=== PATIENT | male | born 1935 | race Caucasian/White ===

== ENCOUNTER 2020-02-12 14:42 | Inpatient (IN) | payer MEDICARE ==
[~2020-02-12] VITALS: Ht 172.7 cm; Wt 60.2 kg
[2020-02-12] MEDS ORDERED: Ondansetron4 MG/2 M2 (15:59)
[2020-02-12] MEDS ORDERED: ALPR.25 (15:59)
[2020-02-12 16:25] LABS: BASOPHILS ABSOLUTE AUTO 0.04 K/mm3 (0.00-0.23); BASOPHILS PERCENT AUTO 0 % (0-2); EOSINOPHILS ABSOLUTE AUTO 0.01 K/mm3 (0.00-0.68); EOSINOPHILS PERCENT AUTO 0 % (0-6); Hematocrit 29.9 % (37.0-53.0); Hemoglobin 9.7 g/dL (13.5-17.5); IMMATURE GRAN ABSOLUTE AUTO 0.13 K/mm3 (0.00-0.10); IMMATURE GRAN PERCENT AUTO 1 % (0-1); LYMPHOCYTES ABSOLUTE AUTO 1.07 K/mm3 (0.84-5.20); LYMPHOCYTES PERCENT AUTO 6 % (21-46); MONOCYTES ABSOLUTE AUTO 1.66 K/mm3 (0.16-1.47); MONOCYTES PERCENT AUTO 10 % (4-13); Mean Corpuscular HGB 28.7 pg (26.0-34.0); Mean Corpuscular HGB Conc 32.4 g/dL (31.5-36.5); Mean Corpuscular Volume 89 fL (80-100); Mean Platelet Volume 9.8 fL (9.1-12.4); NEUTROPHILS ABSOLUTE AUTO 14.63 K/mm3 (1.96-9.15); NEUTROPHILS PERCENT AUTO 83 % (41-73); NRBC ABSOLUTE 0.03 K/mm3 (0.00-0.02); NRBC Auto 0.2 /100 WBC (0.0-0.2); Platelet Count 428 K/mm3 (150-400); RDW Coefficient Variation 15.4 % (11.7-14.2); RDW Standard Deviation 48.7 fL (35.1-46.3); Red Blood Cell Count 3.38 M/mm3 (4.30-5.90); White Blood Cell Count 17.54 K/mm3 (4.00-11.30)
[2020-02-12 16:43] LABS: Alanine Aminotransfer (ALT/SGP 40 U/L (12-78); Albumin, Blood 1.9 g/dL (3.4-5.0); Albumin/Globulin Ratio 0.4 (0.8-1.8); Alk Phos 98 U/L (50-136); Anion Gap 15 mmol/L (6-16); Aspartate Aminotrans (AST/SGOT 18 U/L (12-37); Bilirubin, Total 0.3 mg/dL (0.1-1.0); Blood Urea Nitrogen 78 mg/dL (8-24); Bun/Creatinine Ratio 10.5 (12.0-20.0); CO2, Blood 22 mmol/L (21-32); Calcium, Blood 9.7 mg/dL (8.5-10.1); Chloride, Blood 92 mmol/L (98-108); Creatinine, Blood 7.46 mg/dL (0.60-1.20); Globulin, Blood 5.2 g/dL (2.2-4.0); Glomerular Filtration Rate 7 (60-); Glucose, Blood 110 mg/dL (70-99); Potassium, Blood 3.7 mmol/L (3.5-5.5); Sodium, Blood 129 mmol/L (136-145); Total Protein, Blood 7.1 g/dL (6.4-8.2); Troponin I <0.015 ng/mL (0.000-0.040)
[2020-02-12] MEDS ORDERED: ATOR80 PO (19:01)
[2020-02-12] MEDS ORDERED: HYDR1TAB94 PO (19:02)
[2020-02-12] MEDS ORDERED: DUTASTERIDE PO (19:02)
[2020-02-12] MEDS ORDERED: ISOSORBIDE MONO60 MG PO (19:03)
[2020-02-12] MEDS ORDERED: AZELASTINE205.5 MCG1 (19:04)
[2020-02-12] MEDS ORDERED: CLON.5 PO (19:05)
[2020-02-12] MEDS ORDERED: METO25ER PO (19:06)
[2020-02-12] MEDS ORDERED: Ventolin/Prove6.7 GM INH (19:06)
[2020-02-12] MEDS ORDERED: PLAVIX75 MG PO (19:07)
[2020-02-12 19:08] LABS: Prothrombin Time Results 10.7 Sec (9.7-11.5)
[2020-02-12] MEDS ORDERED: PANTOPRAZOLE SO20 M1 PO (19:08)
[2020-02-12] MEDS ORDERED: CARAFATE1 GM PO (19:08)
[2020-02-12] MEDS ORDERED: CALCIUM ACETAT667 M2 PO (19:09)
[2020-02-12] MEDS ORDERED: NITR.4SL SL (19:09)
[2020-02-12] MEDS ORDERED: FURO80 PO (19:10)
[2020-02-12] MEDS ORDERED: Aspir 8181 MG PO (19:11)
--- NOTE | 2020-02-12 21:00 | NUR ---
RECEIVED PT TO PCU1 FROM ED VIA CELENA. REPORT RECEIVED FROM SUPPLY TECHNICIANSTEPHANIE WILLARD. ORIENTED PT AND FAMILY MEMBER TO ROOM AND CALL LIGHT SYSTEM. ADMISSION PROCESS INTIATED.
[2020-02-12 22:08] LABS: Automated BF WBC Count 0.073 K/mm3 (0-999); Body Fluid WBC Count 73 /mm3 (0-999)
[2020-02-12 22:15] LABS: RBC Count, Body Fluid 1 /mm3 (0-0)
[2020-02-12 22:20] LABS: Appearance, Body Fluid Clear (Clear); Color, Body Fluid Yellow (None-Yellow)
[2020-02-12 22:40] LABS: Total Cell Count, Body Fluid 100
--- NOTE | 2020-02-12 22:42 | NUR ---
DIALYSIS-PD CALLED IN TO DO CELL CT, GRAM STAIN, AND C&S. ALSO TO SET UP PD. WHEN I TOUCHED HIS STOMACH, HE BECAME AGGITATED. SAID IT HURT, ALSO HIS BACK. THE PCU NURSE PUT A BINDER AROUND PD TUBING BECAUSE HE WAS GRABBING IT. HE KEPT PUSHING ON HIS GOWN AND BLANKETS. I DCED AN IV THAT WAS IN HIS FISTULA. IT WAS PLACED THERE WHILE HE WAS IN THE ER. THE PD FLUID WAS VERY CLEAR, LIKE WATER. I REPORTED TO DR VILLAVICENCIO, HE DECIDED TO DRAIN AND CAP THE PD FOR TONIGHT DUE TO THE PAIN. GOT 1.2 LITERS OUT.
--- NOTE | 2020-02-12 23:00 | NUR ---
BLADDER SCAN PERFORMED, APPROX 160-190ML URINE VISUALIZED. DR. VILLAVICENCIO INFORMED. NO NEW ORDERS RECEIVED
[2020-02-13 04:08] LABS: BASOPHILS ABSOLUTE AUTO 0.05 K/mm3 (0.00-0.23); BASOPHILS PERCENT AUTO 0 % (0-2); EOSINOPHILS PERCENT AUTO 0 % (0-6); Hemoglobin 10.3 g/dL (13.5-17.5); IMMATURE GRAN ABSOLUTE AUTO 0.12 K/mm3 (0.00-0.10); IMMATURE GRAN PERCENT AUTO 1 % (0-1); LYMPHOCYTES ABSOLUTE AUTO 2.28 K/mm3 (0.84-5.20); LYMPHOCYTES PERCENT AUTO 13 % (21-46); MONOCYTES ABSOLUTE AUTO 1.69 K/mm3 (0.16-1.47); MONOCYTES PERCENT AUTO 9 % (4-13); Mean Corpuscular HGB 28.6 pg (26.0-34.0); Mean Corpuscular HGB Conc 32.2 g/dL (31.5-36.5); Mean Corpuscular Volume 89 fL (80-100); Mean Platelet Volume 9.9 fL (9.1-12.4); NEUTROPHILS ABSOLUTE AUTO 13.87 K/mm3 (1.96-9.15); NEUTROPHILS PERCENT AUTO 77 % (41-73); NRBC ABSOLUTE 0.03 K/mm3 (0.00-0.02); NRBC Auto 0.2 /100 WBC (0.0-0.2); Platelet Count 435 K/mm3 (150-400); RDW Coefficient Variation 15.3 % (11.7-14.2); RDW Standard Deviation 49.1 fL (35.1-46.3); White Blood Cell Count 18.01 K/mm3 (4.00-11.30)
--- NOTE | 2020-02-13 04:28 | NUR ---
SHIFT SUMMARY PT REMAINED A&Ox1 THROUGH SHIFT. PT CONSTANTLY ATTEMPTED TO PULL OFF TELE WIRES/IV WELL ATTEMPTING TO CLIMB OUT OF BED. ATTEMPTED TO REORIENT PATIENT SEVERAL TIMES WITH NO SUCCESS. SPOKE WITH PCP, RECEIVED ORDER FOR NONVIOLENT SOFT RESTRAINTS FOR PATIENT SAFETY. NO ACUTE RESP DISTRESS, PT DENIED CHEST PAIN. PT DOES COMPLAIN OF PAIN IN BACK/ABDOMEN/EVERYWHERE. IN HIS WORDS "ITS KILLING ME". MEDICATED PER ORDERS WITH FAIR RELIEF. PERITONEAL CATH REMAINS IN PLACE TO ABDOMEN, NO DRAINAGE OBSERVED. AV FISTULA TO LEFT UPPER ARM WITH STRONG THRILL/BRUIT. NO URINATION AT THIS TIME. WILL CONTINUE TO MONITOR
[2020-02-13 04:36] LABS: Magnesium, Blood 1.9 mg/dL (1.6-2.4); Thyroid Stimulating Hormone 0.871 uIU/mL (0.360-4.800); Uric Acid, Blood 6.5 mg/dL (3.5-7.2)
[2020-02-13 04:39] LABS: Alanine Aminotransfer (ALT/SGP 32 U/L (12-78); Albumin, Blood 2.2 g/dL (3.4-5.0); Albumin/Globulin Ratio 0.4 (0.8-1.8); Alk Phos 90 U/L (50-136); Anion Gap 16 mmol/L (6-16); Aspartate Aminotrans (AST/SGOT 17 U/L (12-37); Bilirubin, Total 0.5 mg/dL (0.1-1.0); Blood Urea Nitrogen 88 mg/dL (8-24); Bun/Creatinine Ratio 10.5 (12.0-20.0); CO2, Blood 22 mmol/L (21-32); Chloride, Blood 94 mmol/L (98-108); Creatinine, Blood 8.36 mg/dL (0.60-1.20); Globulin, Blood 5.1 g/dL (2.2-4.0); Glomerular Filtration Rate 7 (60-); Glucose, Blood 92 mg/dL (70-99); Phosphorus, Blood 4.7 mg/dL (2.5-4.9); Potassium, Blood 3.6 mmol/L (3.5-5.5); Sodium, Blood 132 mmol/L (136-145); Total Protein, Blood 7.3 g/dL (6.4-8.2); Vancomycin, Random 19.4 ug/mL
--- NOTE | 2020-02-13 08:38 | NUR ---
DIALYSIS-PD NO PD LAST NIGHT DUE TO C/O ABD PAIN. TOOK SUPPLIES TO THE ROOM AND SETUP THE MACHIME. PT STILL C/O ABD AND BACK PAIN. BOTH HANDS ARE RESTRAINED DUE TO HIS PULLING. THERE IS A BINDER ON HIS ABD TO PROTECT HIS PD CATH, STARTED HIN ON TX AT 0830. I DRAINED AND CAPPED HIM LAST NIGHT. PT'S SITE DIDN'T HAVE A DRESSING. CLEANED AND REDRESSED THE SITE. THE SITE WAS VERY CLEAN AND WELL HEALED LOOKING. HE IS VERY CONFUSED, HE DIDN'T RECOGNIZE ME LAST NIGHT BUT CALLED ME BY NAME TODAY,
[2020-02-13 08:42] LABS: Amylase, Blood 5 U/L (25-115)
--- NOTE | 2020-02-13 12:25 | NUR ---
1100 PTS GRANDDAUGHTER HERE TO VISIT, BILAT WRIST RESTRAINTS REMOVED WHILE GRANDDAUGHTER PRESENT
--- NOTE | 2020-02-13 12:25 | NUR ---
RESTRAINTS REAPPLIED TO BILAT WRISTS, PTS GRANDDAUGHTER LEFT AND PT SWINGING LEGS OVER EDGE OF BED AND PULLING AT IV LINE. RESTRAINTS REAPPLIED FOR LINE PROTECTION AND PIETER FALL RISK
--- NOTE | 2020-02-13 14:05 | NUR ---
calm, lying on right side with eyes closed
--- NOTE | 2020-02-13 17:28 | NUR ---
SUMMARY PT ORIENTED TO PERSON AND PLACE, CALM AND COOPERATIVE AT THIS TIME AND NOT ATTEMPTING TO PULL ON LINES OR GET OOB. BED ALARM IN PLACE PT DOES NOT USE CALLL LIGHT. 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 PT REPORTS PAIN IN BACK IS "OK" AT THIS TIME
--- NOTE | 2020-02-13 18:44 | NUR ---
PERITONEAL DIALYSIS DISCONNECTED BY DIALYSIS NURS
--- NOTE | 2020-02-13 18:48 | NUR ---
REPORT PHONED TO CLAUDIA ARIZA RN. PT TO TRANSFER TO ROOM 347
--- NOTE | 2020-02-13 18:51 | NUR ---
DIALYSIS-PD 1845- DCED PD TX. FLUID CLEAR. ID [id number] ML, UF [id number] ML. PT SEES ANTS ON THE CELLING. IS IMPROVED FROM LAST NIGHT AND THIS AM, BUT STILL CONFUSED AND PULLING ON THINGS.
--- NOTE | 2020-02-13 18:56 | NUR ---
SPOKE WITH PATIENTS SON LYNN AND DAUGHTER CHANDNI AND GAVE UPDATE ON THEIR FATHERS CONDITION. BOTH MADE AWARE OF PLAN TO TRANSFER PT TO ROOM 347. PT TRANSFERRED AT THIS TIME TO 347 VIA BED.
--- NOTE | 2020-02-14 00:02 | NUR ---
DIALYSIS-PD AFTER DISCONNECTING PT FROM TX PER PROTOCAL, PT WAS MOVED TO RM 347. WHERE I AGAIN SETUP FOR PD PER DR VILLAVICENCIO. [id number] ML TOTAL VOLUME, 10 HOURS, 1500 DWELL, 1000 LAST FILL 1 HOUR AND 6 MIN DWELL. 7 EXCHANGES. STARTED AT 1999. PT SEEMS BETTER BUT HALLUCINATING. SAID THERE WAS WATER DRIPPING FROM THE CEILING. HE HAD A TOWEL WIPING THE BED RAILS DRY.
--- NOTE | 2020-02-14 03:53 | NUR ---
SHIFT SUMMARY: PT T/F TO MEDICAL FLOOR FROM PCU AT 1900 ON 02/12. VSS. AFEB. AAOX2-3 WITH NOTED FORGETFULNESS AND CONFUSION WORSENING THE NIGHT PROGRESSED. PT HALLUCINATING WATER DRIPPING FROM THE CEILING, SMOKE, AND KEPT STATING THAT HE NEEDED TO GET UP TO ANSWER THE DOOR. ASKED, "WHAT ARE THEY DOING" WHILE LOOKING AT THE CLOSED BLINDS. REDIRECTS EASILY AND IS READILY WILLING TO ACCEPT THAT HE IS IN THE HOSPITAL EACH TIME HE IS TOLD, BUT HE FORGETS THIS QUICKLY. FREQUENTLY TRYING TO GET UP OOB. BED ALARM ON. VIDEO CAMERA MONITORING ADDED. MEDICATED PT FOR BACK PAIN X3 EARLY IN THE SHIFT. ZYPREXA X 1. PT HAS SINCE MIDNIGHT BEEN MORE RELAXED, AWAKE AND FIDGETING W/ BUTTONS ON HIS BED. HE STATES HE IS "OK" AND DOES NOT WANT PAIN MEDS AT THIS TIME. PT HAS NOT BEEN PULLING AT HIS IV OR PD TUBING. PERITONEAL DIALYSIS RUNNING ALL NIGHT. NO ACUTE CONCERS AT THIS TIME. WILL CONT TO MONITOR.
[2020-02-14 04:46] LABS: BASOPHILS ABSOLUTE AUTO 0.04 K/mm3 (0.00-0.23); BASOPHILS PERCENT AUTO 0 % (0-2); EOSINOPHILS ABSOLUTE AUTO 0.07 K/mm3 (0.00-0.68); EOSINOPHILS PERCENT AUTO 0 % (0-6); Hemoglobin 10.3 g/dL (13.5-17.5); IMMATURE GRAN PERCENT AUTO 1 % (0-1); LYMPHOCYTES ABSOLUTE AUTO 0.77 K/mm3 (0.84-5.20); LYMPHOCYTES PERCENT AUTO 4 % (21-46); MONOCYTES ABSOLUTE AUTO 1.74 K/mm3 (0.16-1.47); MONOCYTES PERCENT AUTO 9 % (4-13); Mean Corpuscular HGB 28.8 pg (26.0-34.0); Mean Corpuscular HGB Conc 31.2 g/dL (31.5-36.5); Mean Corpuscular Volume 92 fL (80-100); Mean Platelet Volume 9.8 fL (9.1-12.4); NEUTROPHILS ABSOLUTE AUTO 16.17 K/mm3 (1.96-9.15); NEUTROPHILS PERCENT AUTO 85 % (41-73); Platelet Count 408 K/mm3 (150-400); RDW Coefficient Variation 15.5 % (11.7-14.2); RDW Standard Deviation 51.8 fL (35.1-46.3); Red Blood Cell Count 3.58 M/mm3 (4.30-5.90); White Blood Cell Count 18.99 K/mm3 (4.00-11.30)
[2020-02-14 05:15] LABS: Albumin/Globulin Ratio 0.4 (0.8-1.8); Bilirubin, Total 0.4 mg/dL (0.1-1.0); Bun/Creatinine Ratio 9.8 (12.0-20.0); Calcium, Blood 9.8 mg/dL (8.5-10.1); Creatinine, Blood 7.05 mg/dL (0.60-1.20); Globulin, Blood 4.8 g/dL (2.2-4.0); Magnesium, Blood 1.9 mg/dL (1.6-2.4); Phosphorus, Blood 5.6 mg/dL (2.5-4.9); Potassium, Blood 3.1 mmol/L (3.5-5.5); Total Protein, Blood 6.8 g/dL (6.4-8.2)
--- NOTE | 2020-02-14 07:59 | NUR ---
PATIENT IN BED, QUIET BUT WAKENS TO PARTIAL ORIENT. SOME NOTABLE CONFUSION OBSERVED. NO OVERT EXPRESSIONS OF DISCOMFORT. OVERNIGHT CCPD COMPLETE. PT AESEPTICALLY DISCONNECTED AND CAPPED. CATHETER SECURED IN ABD BELT FOR THE DAY. CYCLER STRIPPED AND CLEANED. DR VILLAVICENCIO CONSULTED FOR PLAN OF CARE/NEW ORDERS
[2020-02-14 14:24] LABS: Automated BF WBC Count 0.007 K/mm3 (0-999); Body Fluid WBC Count 7 /mm3 (0-999)
[2020-02-14 14:59] LABS: RBC Count, Body Fluid 0 /mm3 (0-0)
[2020-02-14 15:03] LABS: Appearance, Body Fluid Clear (Clear); Color, Body Fluid No color (None-Yellow); Protein, Body Fluid 0.2 g/dL; Total Cell Count, Body Fluid 25
--- NOTE | 2020-02-14 18:28 | NUR ---
PATIENT REMAINS CONFUSED THIS AFTERNOON. PATIENT'S SON IN ROOM AT BEDSIDE. PERITONEAL EFFLUENT SAMPLE OBTAINED EARLIER TO SATISFY OUTSTANDING ORDER PLACED BY HOSPITALIST. SPINNER CONCRETE PIPE CARRIED TO LAB. CYCLER STRUNG, PRIMED AND PROGRAMMED PER DR VILLAVICENCIO'S ORDER. WHEN PRIME COMPLETE, PT AESEPTICALLY CONNECTED AND OVERNIGHT THERAPY STARTED. EXIT SITE CARE DONE. NEW STERILE DRESSING APPLIED. EXIT DRY, TIGHT AND NON-TENDER. CATHETER/LINE CONNECTION SECURED FOR NIGHT IN ABD BELT.
--- NOTE | 2020-02-14 19:27 | NUR ---
SHIFT SUMMARY- PT IS CONFUSED AND PLESANT. HIS APPETITE IS POOR. SON AT BEDSIDE FOR MOST OF THIS SHIFT. SPOKE TO HIS DAUGHTER ON HE PHONE. PT HAVING VISUAL HALLUCINATIONS. HE APPERES TO BE PICKING THINGS OUT OF THE AIR AND OFF THE TABLE. HE SAT UP ON THE EDGE OF THE BED AND WAS VERY UNSTEADY. HE WANTED TO GET UP BUT WAS NOT SAFE TO STAND. HIS BLADDER SCAN SHOWED LESS THAN 100ML. HE IS TAKING HIS MEDICATIONS WITH APPLE SAUCE AND IS POCKETING PILLS. HE IS CURRENTLY RUNNING ON DIALYSIS, CALL LIGHT WITHIN REACH.
--- NOTE | 2020-02-14 23:06 | NUR ---
PT AGITATED AT START OF SHIFT, ATTEMPTING TO STAND UP INDEPENDENTLY. TREMULOUS, WEAK. VERY CONFUSED. HALLUCINATING. PT COUGHING MORE WITH ORAL INTAKE AND UNABLE TO FINISH TAKING PILLS, HEAD OF BED WAS ELEVATED 90 DEGREES, PILLS IN APPLE SAUCE. COUGHED ON WATER. INCREASED TEXTURE TO NECTAR THICK AND PT COUGHED ON THAT. WILL MOVE TO PUREE TEXTURE FOR ANY FURTHER INTAKE UTIL PT CAN BE FURTHER EVALUATED. PT WOULD NOT SWALLOW THE LARGER PILLS, HE POCKETED THEM AND THEN COUGHED THEM OUT. LSCTA W/ DIM BASES. ABLE TO FOLLOW COMMANDS BUT IS NOT CONVERSATIONAL.
--- NOTE | 2020-02-15 04:47 | NUR ---
SHIFT SUMMARY: VSS. AFEB. 02 SAT 90-96% ON RA. LSCTA. PT SLEEPING WELL TONIGHT. NO ATTEMPTS TO GET OOB. APPEARS QUITE WEAK. MOVING HANDS IN FRONT OF FACE, APPEARING TO PERFORM IMAGINARY/HALLUCINATORY TASKS. WITHDRAWN AND INTERACTING W/ STAFF A LOT LESS. USING SHORT ONE WORD RESPONSES. WHEN ASKED PT HOW HE IS DOING HE QUIETLY STATES, "FINE". WILL SQUEEZE FINGERS WHEN ASKED. PERITONEAL DIALYSIS RUNNING ALL NIGHT. PT HAS MADE NO ATTEMPTS TO PULL AT LINES OR TUBES. NO VOID. BLADDER SCANNED PER ORDER: 103 CC'S. WILL COMMUNICATE CHANGES IN PT'S ORIENTATION AND MENTATION, INCREASED WEAKNESS, AND DECREASED ABILITY TO SAFELY SWALLOW TO DAY SHIFT RN. WILL CONT TO MONITOR PT STATUS.
[2020-02-15 05:31] LABS: BASOPHILS ABSOLUTE AUTO 0.04 K/mm3 (0.00-0.23); BASOPHILS PERCENT AUTO 0 % (0-2); EOSINOPHILS ABSOLUTE AUTO 0.17 K/mm3 (0.00-0.68); EOSINOPHILS PERCENT AUTO 1 % (0-6); Hematocrit 31.6 % (37.0-53.0); Hemoglobin 9.7 g/dL (13.5-17.5); IMMATURE GRAN ABSOLUTE AUTO 0.16 K/mm3 (0.00-0.10); IMMATURE GRAN PERCENT AUTO 1 % (0-1); LYMPHOCYTES ABSOLUTE AUTO 0.81 K/mm3 (0.84-5.20); LYMPHOCYTES PERCENT AUTO 5 % (21-46); MONOCYTES ABSOLUTE AUTO 1.37 K/mm3 (0.16-1.47); MONOCYTES PERCENT AUTO 8 % (4-13); Mean Corpuscular HGB 28.8 pg (26.0-34.0); Mean Corpuscular HGB Conc 30.7 g/dL (31.5-36.5); Mean Corpuscular Volume 94 fL (80-100); Mean Platelet Volume 9.7 fL (9.1-12.4); NEUTROPHILS PERCENT AUTO 85 % (41-73); Platelet Count 391 K/mm3 (150-400); RDW Coefficient Variation 15.7 % (11.7-14.2); RDW Standard Deviation 53.1 fL (35.1-46.3); Red Blood Cell Count 3.37 M/mm3 (4.30-5.90); White Blood Cell Count 16.55 K/mm3 (4.00-11.30)
[2020-02-15 05:53] LABS: Albumin, Blood 1.7 g/dL (3.4-5.0); Anion Gap 11 mmol/L (6-16); Blood Urea Nitrogen 64 mg/dL (8-24); Bun/Creatinine Ratio 9.4 (12.0-20.0); CO2, Blood 27 mmol/L (21-32); Calcium, Blood 9.9 mg/dL (8.5-10.1); Chloride, Blood 98 mmol/L (98-108); Creatinine, Blood 6.83 mg/dL (0.60-1.20); Glomerular Filtration Rate 8 (60-); Glucose, Blood 144 mg/dL (70-99); Magnesium, Blood 1.9 mg/dL (1.6-2.4); Phosphorus, Blood 5.9 mg/dL (2.5-4.9); Potassium, Blood 3.2 mmol/L (3.5-5.5); Sodium, Blood 136 mmol/L (136-145)
--- NOTE | 2020-02-15 07:44 | NUR ---
PATIENT IN BED, WAKENS EASILY, REMAINS CONFUSED AND NON-CONVERSANT. OVERNIGHT CCPD COMPLETE. PATIENT AESEPTICALLY DISCONNECTED AND CAPPED. CATHETER SECURED IN WAIST BELT FOR THE DAY. CYCLER STRIPPED AND CLEANED. DR VILLAVICENCIO CONSULTED FOR NEW ORDERS / PLAN OF CARE.
[2020-02-15 09:06] LABS: C-REACTIVE PROTEIN, EXT RANGE >19.000 mg/dL (0.000-0.300)
--- NOTE | 2020-02-15 10:38 | NUR ---
PATIENT CHECKED FOR URINATION. HE IS DRY CURRENTLY. WILL MONITOR. WILL ATTEMPT A BED BATH LATER TODAY.
--- NOTE | 2020-02-15 16:57 | NUR ---
SHIFT SUMMARY- PT HAS BEEN LETHARGIC THIS SHIFT. DAUGHTER AT BEDSIDE. SEEN BY ST AND DECIDED TO MAKE HIM NPO. HE HAS NOT BEEN RESPONDING APPROPRIATLY AND IS HAVING VISIUAL HALLUCINATIONS. RECIEVED A BEDBATH THIS SHIFT AND TOLERATED WELL. HIS BED IS IN THE LOW POSITION AND HIS CALL LIGHT IS WITHIN REACH.
--- NOTE | 2020-02-15 17:41 | NUR ---
PATIENT IN BED. DAUGHTER AT BEDSIDE. PT WITH SIGNIFICANT CONFUSION AND PERIODICALLY DESCRIBING HALLUCINATIONS IN ROOM. CYCLER STRUNG, PRIMED AND PROGRAMMED PER DR VILLAVICENCIO'S ORDERS. WHEN PRIME COMPLETE, PT CONNECTED AND THERAPY STARTED. CATHETER AND LINE SECURED IN WAIST BELT. EXIT SITE CARE DONE AND NEW DRESSING APPLIED. EXIT SITE CLEAR.
--- NOTE | 2020-02-15 19:10 | NUR ---
ASSUMED CARE RECEIVED REPORT FROM STEPHANIE ARELLANO. ASSUMED CARE OF PT. APPEARS LETHARGIC AT THIS TIME, RESPS E/U. NO S/S ACUTE DISTRESS. PT RESTING COMFORTABLY. IVF ONGOING, PERITONEAL DIALYSIS ONGOING. CALL LIGHT, POSSESSIONS IN REACH, BED IN LOW POSITION WITH ALARMS ON. WCTM.
--- NOTE | 2020-02-16 01:15 | NUR ---
THIS RN PREPARING TO MEDICATE PT FOR ANXIETY WITH PRN IV ATIVAN, WHEN IT WAS PULLED, VIAL HAD AN ORANGE STICKER THAT STATED "EXP 04/2019", THOUGH ON VIAL ITSELF IT STATED "EXP 10/2022." THIS RN SHOWED TO TYRELL COTA, CLINICAL COORDINATOR, WITNESS, WHO STATED TO CALL PHARMACY. SPOKE TO ALFREDO BROWN, WHO DIRECTED THIS RN TO NOT ADMINISTER MEDICATION. INSTRUMENT FITTER CAME TO FLOOR TO EVALUATE SITUATION AND CHECK PYXIS. ACCOUNT OFFICER DONTE QUEZADA ALSO SHOWN AFFECTED VIAL WITNESS. MEDICATION FROM AFFECTED VIAL NOT GIVEN TO PT, WASTED WITH PRITESH CORONEL RN.
--- NOTE | 2020-02-16 04:06 | NUR ---
SHIFT SUMMARY PT ASLEEP AT THIS TIME, WAS DROWSY FOR MUCH OF THE SHIFT, UNABLE TO SAFELY TAKE PO MEDS D/T ASPIRATION RISK. PT APPEARED INCREASINGLY LUCID TOWARDS THE MIDDLE OF THE NIGHT, ABLE TO STATE NAME/, FOLLOW SIMPLE COMMANDS, AND USE ORAL SWABS TO MOISTEN MOUTH. VISUAL HALLUCINATIONS NOTED, RE-DIRECTED PT. ANXIOUS AT TIMES, PROVIDED REASSURANCE AND MEDICATED PER EMAR. PERITONEAL DIALYSIS ONGOING T/O NIGHT, PT TOLERATED WELL. DRSG TO ABD C/D/I. PT DENIES NEEDS AT THIS TIME. CALL LIGHT, POSSESSIONS IN REACH, BED IN LOW POSITION WITH ALARMS ON. WCTM, REPORT OFF TO ONCOMING RN.
[2020-02-16 05:14] LABS: Hematocrit 32.5 % (37.0-53.0); Hemoglobin 9.8 g/dL (13.5-17.5)
[2020-02-16 05:45] LABS: Albumin, Blood 1.8 g/dL (3.4-5.0); Anion Gap 11 mmol/L (6-16); Blood Urea Nitrogen 60 mg/dL (8-24); Bun/Creatinine Ratio 8.4 (12.0-20.0); CO2, Blood 25 mmol/L (21-32); Calcium, Blood 9.7 mg/dL (8.5-10.1); Chloride, Blood 102 mmol/L (98-108); Creatinine, Blood 7.16 mg/dL (0.60-1.20); Glomerular Filtration Rate 8 (60-); Glucose, Blood 122 mg/dL (70-99); Phosphorus, Blood 5.8 mg/dL (2.5-4.9); Potassium, Blood 3.3 mmol/L (3.5-5.5); Sodium, Blood 138 mmol/L (136-145)
--- NOTE | 2020-02-16 13:52 | NUR ---
Summary of multiple phone conversations with three of pt's children, and case converences with pt's nurses and Dr Alexandre. Pt's Son Kin informed me that family would like comfort care institued at this time. They request that dialysis be discontinued and that any treatment that would prolong his suffering be discontinued. I had spoken with his sisters, Bushra and Brittney prior to that and at this time all siblings are in agreement, although they were not this am. I visited pt and found him sleeping with HOB elevated. He did not wake to voice or gentle touch. His breathing is course with mouth breathing but no nonverbal indicators of dyspnea or agiation noted. Pt looks slightly uncomfortable with grimacing noted. All of above reported and reviewed with RN and . Comfort care orders obtained and entered in EMR. Four family members to be allowed in per day for bedside attendance. Comfort care cart ordered for them. Dialysis unit notified of change of status to comfort care also.
--- NOTE | 2020-02-16 14:03 | NUR ---
DIALYSIS-PD AT 0745 PT WAS DISCONNECTED FROM THE PD TX. FLUID CLEAR. PT HAD NO COMPLAINTS. STILL CONFUSED, BUT IMPROVED. ID [id number] UF [id number] PT IS GOING ON COMFORT CARE PER FAMILY.
--- NOTE | 2020-02-16 18:40 | NUR ---
Requested by nursing to come evaluate pt. He is having more periods of apnea with a resp rate from 3 - 20 per minute, his heart rate is more irregular. He has occasional small jerky movements of his arms. He grimaced when the HOB was lowered. He states that his neck hurts. Nursing will plan to medicate with roxinol for his pain. He requests to sleep. PC to continue to monitor.
--- NOTE | 2020-02-16 19:03 | NUR ---
SHIFT SUMMARY PATIENT CHANGED TO COMFORT CARE. PATIENT'S FAMILY HAS BEEN IN. NO ACUTE CONCERNS AT THIS TIME. PATIENT IS DEFINITELY TO A POINT OF TRANSITION. HE IS CURRENTLY BREATHING ANYWHERE FROM 3-20 BREATHS A MINUTE. HE HAS HAD TWO DOSES OF ATIVAN AND THREE DOSES OF ROXANOL TODAY.
--- NOTE | 2020-02-16 19:05 | NUR ---
ASSUMED CARE RECEIVED REPORT FROM STEPHANIE ADAME. ASSUMED CARE OF PT. NO S/S ACUTE DISTRESS NOTED AT THIS TIME, APPEARS COMFORTABLE. DENIES NEEDS. CALL LIGHT, POSSESSIONS IN REACH, BED IN LOW POSITION. WCTM.
--- NOTE | 2020-02-17 03:22 | NUR ---
SHIFT SUMMARY PT ASLEEP, NO S/S ACUTE DISTRESS NOTED. APPEARS COMFORTABLE. MEDICATED FOR PAIN PRN WITH MEDS PER EMAR, DENIES PAIN AT THIS TIME. REPOSITIONED TOLERATED. RESPS EVEN AND UNLABORED. DENIES NEEDS. EASY-TOUCH CALL LIGHT AND POSSESSIONS IN REACH. BED IN LOW POSITION WITH ALARMS ON. WCTM, REPORT TO ONCOMING RN.
--- NOTE | 2020-02-17 05:25 | NUR ---
PT STATING "I HAVE TO PEE." PT BLADDER SCANNED PER ORDERS, RESULTING 150MLS. SPOKE TO JOCY, ASSISTANT TO THE CEO, RECOMMENDED TO CONTINUE TO MONITOR. WILL CONTINUE TO MONITOR AND REPORT TO DAY RN AT THIS TIME.
--- NOTE | 2020-02-17 18:22 | NUR ---
SHIFT SUMMARY PATIENT IS PLEASANT. HE HAS BEEN MORE ALERT THAN HE HAS BENE IN THE LAST FEW DAYS. HE DENIES ANY CONCERNS MINUS HIS PAIN. HE HAS PAIN MEDICATION ON BOARD. AWAITING HIS "PROCESS". HE STATES THAT HE HAS BEEN VERY THIRSTY.
--- NOTE | 2020-02-17 19:05 | NUR ---
ASSUMED CARE RECEIVED REPORT FROM STEPHANIE ADAME. ASSUMED CARE OF PT. RESTING COMFORTABLY, NO S/S ACUTE DISTRESS NOTED. CALL LIGHT, POSSESSIONS IN REACH, BED IN LOW POSITION WITH ALARMS ON. TM.
--- NOTE | 2020-02-18 04:32 | NUR ---
SHIFT SUMMARY PT RESTING COMFORTABLY, NO S/S ACUTE DISTRESS NOTED. WAS MONITORED EVERY 1-2 HOURS WITH NEEDS MET. PT MEDICATED FOR PAIN X1, APPEARS COMFORTABLE AT THIS TIME, WCTM AND PROVIDE TX NEEDED. REPOSITIONED TOLERATED. PT ASLEEP AT THIS TIME, DENIES NEEDS. CALL LIGHT AND POSSESSIONS IN REACH, BED IN LOW POSITION WITH ALARMS ON. WCTM, REPORT OFF TO DAY RN.
--- NOTE | 2020-02-18 14:54 | NUR ---
Multiple visits today. Pt resting in bed with his eyes closed during first visit. Pt appeared comfortable with no S/S of distress. Family at bedside and offered therapeutic listening as family expresses concerns regarding discontinuing dialysis. Family feels Pt made decision of D/C dialysis and not pursuing biopsy when he was confused. Continued therapeutic listening and validated concerns. Family would like Pt to start dialysis again in hopes his mentation will clear up enough to make his own decision. Called and spoke with Pt's son Kin (POA). Discussed plan of care. Kin is also in agreement to for Pt to start dialysis in hopes mentation clears for Pt to make his own decision. Spoke with Dr Churchill and discussed case. Placed order for nephrology consult and called Dr Lassiter's office per V/O from Dr Churchill. F/U visit. Pt's eyes are open but is confused. Pt responds in 1 to 2 word nonsenical conversation. Discussed plan of care with family at bedside and engaged in therapeutic listening. Discussed the importance of family considering how long or if to D/C dialysis if Pt shows no improvement. Family expresses appreciation of visit and reports no other concerns at this time. Palliative Care will remain available.
--- NOTE | 2020-02-18 17:45 | NUR ---
PATIENT WAS WITHDRAWN FROM TREATMENT FOR TWO DAYS PER FAMILY REQUEST. TODAY AFTER CONSULT WITH DR WALTERS FAMILY MEMBERS WISH TO RESUME CCPD THERAPY IN ORDER TO ASCERTAIN ANY BENEFIT TO PATIENT'S COGNITION. CYCLER STRUNG, PROGRAMMED AND PRIMED PER DR WALTERS'S RX. PT CONNECTED AND THERAPY STARTED WHEN PRIME COMPLETED. EXIT SITE CARE DONE. NEW STERILE DRESSING APPLIED. MED FLOOR STAFF AWARE OF OVERNIGHT THERAPY IN PROGRESS. PATIENT'S FAMILY MEMBERS IN ROOM WITH PATIENT AT BEDSIDE.
[2020-02-18 18:11] LABS: Source, Urine Catheter
[2020-02-18 18:18] LABS: Appearance, Urine Cloudy (Clear); Bilirubin, Urine Neg (Neg); Blood, Urine 5+ (Neg); Color, Urine Amber (P-Yellow); Glucose Qualitative, Urine 3+ (Neg); Ketones, Urine 1+ (Neg); Leukocyte Esterase, Urine 3+ (Neg); Nitrite, Urine Neg (Neg); Protein, Urine 4+ (Neg); Specific Gravity, Urine 1.015 (1.003-1.022); Urobilinogen, Urine NORM (Normal)
--- NOTE | 2020-02-18 18:19 | NUR ---
SHIFT SUMMARY PT HAS BEEN AWAKE AND CONFUSED MOST OF THE SHIFT. MEDICATED FOR DISCOMFORT X2 THIS SHIFT PER EMAR. PT WAS STRAIGHT CATHED THIS EVENING AND DRAINED 155 ML OF DARK URINE FROM BLADDER. PT HAD BEEN C/O FEELING LIKE HE HAD TO VOID ALL AFTERNOON AND THIS RN DISCUSSED THIS WITH DR. WALTERS AND SHE ORDERED STRAIGHT CATH DUE TO PT NORMALLY DOES AT HOME. PT RECEIVING PD TONIGHT PER FAMILY REQUEST TO SEE IF PT BECOMES MORE ALERT AND ORIENTED TO MAKE SURE PT WANTS TO BE CC. PT IS CC AT THIS TIME. WILL CONTINUE TO MONITOR AND REPORT TO ONCOMING RN. FAMILY AT BEDSIDE.
[2020-02-18 18:32] LABS: Bacteria Many /hpf; Renal Epithelial Few /hpf (0-Rare); Squamous Epithelial Cells Rare /hpf (Few); Transitional Epithelial Cells Few /hpf (0-Rare); White Blood Cells, Urine TNTC /hpf (0-5)
--- NOTE | 2020-02-19 01:40 | NUR ---
PT CALLING INTO HALLS AND SEEMS TO BE MORE CONFUSED AND ANXIOUS DESPITE ATTEMPTS TO CALM PT AND REORIENT HIM. PLAN TO ADMINISTER PRN ZYPREXA OR ATIVAN DEPENDING ON FURTHER ASSESSMENT OF NEEDS. WILL MONITOR AND MEDICATE PER EMAR.
--- NOTE | 2020-02-19 05:27 | NUR ---
SUMMARY: PT REMAINS ON COMFORT CARE AND IS A/O TO SELF BUT IS CONFUSED OTHERWISE AND FORGETFUL W/REMINDERS. HE CALLS INTO HALLS FOR ASSIST AND NEGLECTS SOFT TOUCH CALL LIGHT. IT IS UNCLEAR IF HE IS HALLUCINATING BUT HE DOES TALK TO SELF AND MUMBLES NONSENSICALLY WHEN STAFF NOT IN ROOM. HE IS ABLE TO SPECIFY NEEDS AND ANSWERS STAFF'S POINTED Q'S. TURN SCHEDULE MAINTAINED AND MOUTH CARE PROVIDED TOLERATED. PERITONEAL DIALYSIS RECIEVED T/O NOCTE AND PT DIDN'T VOID THIS SHIFT. PLAN TO BLADDER SCAN AND STRAIGHT CATH IF NEEDED. MEDS TOLERATED CRUSHED IN APPLESAUCE. ROXINOL RECIEVED PRN THIS SHIFT FOR CHRONIC PAIN. NO ACUTE CHANGES. WCTM AND REPORT TO DAY RN.
[2020-02-19 06:44] LABS: Bun/Creatinine Ratio 9.8 (12.0-20.0); Calcium, Blood 9.9 mg/dL (8.5-10.1); Creatinine, Blood 9.71 mg/dL (0.60-1.20); Potassium, Blood 3.9 mmol/L (3.5-5.5)
--- NOTE | 2020-02-19 06:56 | NUR ---
CRITICAL CREATININE NOW 9.71. PT ON PERITONEAL DIALYSIS T/O NOCTE.
[2020-02-19 07:08] LABS: Automated BF WBC Count 0.022 K/mm3 (0-999); Body Fluid WBC Count 22 /mm3 (0-999)
--- NOTE | 2020-02-19 07:16 | NUR ---
PATIENT AWAKE, ALERT AND KNOWS THIS NURSE BY NAME UPON ENTRY TO ROOM. PATIENT SUFFERING VIVID PARANOID DELUSIONS WITH REPORT OF PERSONS CONSPIRING TO CAUSE HIM HARM. CAUTIONING THIS NURSE TO WATCH BEHIND MY BACK. REPORTING SUSPICION OF MORPHINE OVERDOSE. ATTEMPTS TO CALM AND COMFORT HAVING LITTLE EFFECT. OVERNIGHT CCPD COMPLETE. EFFLUENT SAMPLE OBTAINED PER DR WALTERS'S ORDER AND CARRIED TO LAB. PATIENT DISCONNECTED AND CAPPED. CATHETER SECURED IN WAISTE BELT FOR THE DAY. CYCLER STRIPPED AND CLEANED.
[2020-02-19 07:35] LABS: RBC Count, Body Fluid 2 /mm3 (0-0)
[2020-02-19 07:57] LABS: Appearance, Body Fluid Clear (Clear); Color, Body Fluid No color (None-Yellow); Total Cell Count, Body Fluid 25
--- NOTE | 2020-02-19 09:46 | NUR ---
Pt resting in bed upon arrival. Pt more alert but still significantly confused with some paranoia. COIL BUILDER Artemio just finishing up bed bath. Pt states "if you leave he is going to kill me". Offered therapeutic voice and reasured Pt intentions are for comfort. Spoke with Bedside RN Shaylee and discussed case. Palliative Care will remain available.
--- NOTE | 2020-02-19 11:21 | NUR ---
Spiritual care visit conducted. Patient is sitting up in bed and alert. Patient comes in and out of reality. Some moments he is clear, knows who I am and my connection to him (I have known patient for decades) and at other times he is convinced that the staff is trying to kill him by drugging him. Patient's daughter and son-in-law visit patient while I am present and so after a 45 min. visit let them have time alone with patient. Patient asked me to not leave him until he was safe so once family arrived patient began to be more at peace. I provide anxiety containment, a calming presence, companionship and prayer. Patient respnds well and shows signs of being more relaxed in body and mind. I will continue to remain available to patient and family.
--- NOTE | 2020-02-19 17:39 | NUR ---
SHIFT SUMMARY PT WAS PARANOID THIS AM BUT COOPERATIVE WITH CARE THIS AM. PT RECEIVED A BED BATH AND REPORTED FEELING BETTER AFTER. THIS RN MEDICATED FOR ANXIETY WITH 1MG OF ATIVAN AT 1230 AND PT HAS BEEN RESTING QUIETLY SINCE. FAMILY HAS BEEN AT BEDSIDE THIS AFTERNOON. NO SIGNS OF DISCOMFORT AT THIS TIME. WILL CONTINUE TO MONITOR AND REPORT TO ONCOMING RN.
--- NOTE | 2020-02-19 17:51 | NUR ---
PATIENT MUCH MORE RESTFUL TONIGHT. WAKENS TO TACTILE STIMULUS BUT OTHERWISE RESTING QUIETLY. DAUGHTER AND SON-IN-LAW IN ROOM AT BEDSIDE. CYCLER STRUNG, PRIMED AND PROGRAMMED PER DR WALTERS'S ORDER. PATIENT CONNECTED AND THERAPY STARTED WHEN PRIME COMPLETE. EXIT SITE CARE DONE. NEW STERILE DRESSING APPLIED. MED FLOOR STAFF AWARE OF OVERNIGHT THERAPY IN PROGRESS.
--- NOTE | 2020-02-20 04:59 | NUR ---
SUMMARY: PT REMAINS ON COMFORT CARE BUT HAS SLEPT THE MAJORITY OF NOCTE AND HAS SHOWN NO S/S AGGITATION, HALLUCINATIONS OR PARANOIA THIS SHIFT. HE'D BEEN MEDICATED W/ATIVAN ON DAY SHIFT AND HAS BEEN CALM AND SLEEPING SINCE SO SCHEDULED SEROQUEL AT HS WAS HELD. PT AWOKE BRIEFLY FOR REPOSITIONING AND OCCASIONAL MOUTH CARE BUT NEVER BECAME ANXIOUS LIKE PREVIOUS NOCTE. PERITONEAL DIALYSIS HAS BEEN IN PROGRESS. HE SEEMS TO BE ORIENTED TO SELF ONLY AND DOESN'T SEEM TO UNDERSTAND USE OF SOFT TOUCH CALL LIGHT. NO ACUTE CHANGES AND NO S/S DISTRESS T/O NOCTE. WCTM AND REPORT TO DAY RN.
--- NOTE | 2020-02-20 08:14 | NUR ---
DIALYSIS-PD PT WAS TRYING TO CLIMB OUT OF BED. HE IS VERY CONFUSED. HE KNEW WHO I WAS AND TOLD ME THAT HE LIKED SHANNA AND I. BUT EVERYONE ELSE WAS SAYING HE IS HALLUCINATING AND THAT IS NOT TRUE. (WHEN I SAY HIM ON THE W/E, THERE WERE ANTS ON THE CEILING AND WATER DRIPPING ON HIS BED). HE APPEARS QUITE AGGITATED. THE 2 CORPORATE RESPONSIBILITY OFFICER GOT HIM BACK UP IN BED, DISCONNECTED HIM FROM PD. UF 33 ML, ID [id number] ML. FLUID VERY CLEAR.
--- NOTE | 2020-02-20 12:53 | NUR ---
Pt resting in bed upon arrival. Pt alert but confused. Pt appears comfortable with no S/S of distress at this time. Family at bedside. Offered therapeutic listening and anwered questions. No other concerns reported at this time. Palliative Care will remain available.
--- NOTE | 2020-02-20 15:54 | NUR ---
PATIENT GOES FROM BEING PLEASANT AND COOPERATIVE WITH STAFF TO HAVING HALLUCINATIONS AND PARANOIA AND RESISTING ALL CARE. PATIENT MEDICATED WITH SEROQUEL AND ATIVAN TODAY TO HELP CALM THE PATIENT DURING HIS EPISODES OF ANXIETY WITH EFFECTIVENESS. FAMILY HAS BEEN VISITING AT BED SIDE FOR SEVERAL HOURS TODAY. PATIENT WITH VERY MINIMAL APPETITE; HAVING TROUBLE SWOLLOWING THIN LIQUIDS BY SPOON. WILL REQUEST THAT THICKENED LIQUIDS BE SENT UP WITH MEALS. PATIENT RESTING IN BED AT THIS TIME. WILL CONTINUE TO MONITOR AND PROVIDE CARE NEEDED.
--- NOTE | 2020-02-20 16:55 | NUR ---
Spiritual care note: I met with Gene and his dtr and BILL. Provided calm presence and a back-rub to pt. He appeared a bit restless, but overall comfortable. Provided prayer and affirmation of love. Dtr appears loving and devoted. She was tearful, but appropriate. Counseled on self-care and dying process. I will remain available.
--- NOTE | 2020-02-21 03:48 | NUR ---
CLIENT APPLICATION SUPPORT ENGINEER SUMMARY PT WAS TIRED AT THE START OF THE SHIFT HOWEVER AWOKE TO TAKE HIS 2100 MEDICATION. THE PT APPEARED COMFORTABLE DENYING ANY PAIN OR NAUSEA DURING THE SHIFT. THE PT TOLERATING REPOSITIONING WELL. PT SLEEPING COMFORTABLY W CALL LIGHT WITHIN REACH. TM.
--- NOTE | 2020-02-21 11:35 | NUR ---
Pt resting in bed upon arrival. Family at bedside with Customer Experience Strategist Deyvi offering spirtual support. Pt pleasantly confused and appers comfortable with no S/S of distress at this time. Spoke with Bedside RN Liz and discussed case. Liz reports no concerns at this time. Palliative Care will remain available.
--- NOTE | 2020-02-21 11:40 | NUR ---
Spiritual care visit conducted. Patient is sitting up in bed and alert. Patient's daughter, pulls me outside patient's rm and explains how patient is hallucinating about how the hospital staff are trying to kill him and that he wants to go to the police station. He is mad at the daughter because she won't take him. She tells me about the [place] possibility for hospice placement that could happen as early as this evening. She is tearful about how the rest of the family won't visit or share the load of care and about how patient is not himself. I discuss self-care and assist in the decisions regarding going back on dialysis and or leaving on hospice. I then visit 30 min. with patient. He has some very clear moments with me discussing and dying and the beauty of being with Uri after . Patient's face lights up and he speaks appropriately to the conversation and is present. Patient's family are clearly encouraged by the conversation. I pray with patient and he bows his head and closes his eyes. He is tearful during the prayer and voices appreciation. Family also voice appreciation and state that the conversation had the patient deeply involved and connected. I will continue to remain available to patient and family.
--- NOTE | 2020-02-21 16:59 | NUR ---
PT IS AOX1 AND HAS CONFUSION. PT HAS BEEN ON COMFORT MEASURES. AT TIMES PT THINKS PEOPLE ARE TRYING TO POISON HIM. PALLIATIVE CARE WAS ABLE TO COME AND ASSIST GIVING MEDS TO PT FOR ANXIETY. PT WAS RESISTIVE OF ANY ORAL MEDS AND WAS EVEN REFUSING TO EAT WITH DAUGHTER TRYING TO ASSIST STATING TO HER SHE WAS TRYING TO GIVE MED FROM THE NURSE. PT SEEMS TO BE IMPROVED OF ANXIETY. PT IS BEING TURNED Q2HRS. WILL CONTINUE TO MONITOR AND BED ALARM IS IN PLACE.
--- NOTE | 2020-02-22 04:40 | NUR ---
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 PT HAD C/O PLEURITIC CHEST PAIN AND WAS GIVEN 10MG OF ROXANOL W RELIEF. NO AGITATION OR OUTBURSTS THIS SHIFT AND WAS COOPERATIVE W ALL CARE. PLAN IS TO DC TO [facility] THIS AM, WILL DO COVID 19 SWAB AFTER 0600, WCTM.
[2020-02-22 08:37] LABS: Influenza A, PCR Negative (NEGATIVE); Influenza B, PCR Negative (NEGATIVE); Resp Syncytial Virus, PCR Negative (NEGATIVE); SARS-Cov-2 (COVID-19) PCR, MMC Negative (NEGATIVE)
--- NOTE | 2020-02-22 09:17 | NUR ---
CALLED DAUGHTER AT 904 TO INFORM OF TRANSPORT TIME OF 929. PREMEDICATED FOR PAIN AT 0915.
--- NOTE | 2020-02-22 09:38 | NUR ---
REPORT CALLED TO AMANDA RN, JABIER @[phone] [phone]
--- NOTE | 2020-02-22 12:23 | NUR ---
PICKED UP FOR TRANSPORT TO [place], 5TH FLOOR. SEEN BY HOSPITALIST PRIOR TO TRANSPORT. ALL BELONGINGS SENT WITH PATIENT.
== END 2020-02-22 09:50 | disposition hospice, home (50) | DRG 919 ==
LOC: ER 14:42 → PCU 14:43 → MEDS 14:43 → PCU 20:56 → MEDS 02-13 19:00
PROVIDERS: Emergency Medicine; Family Medicine; Internal Medicine; Internal Medicine Nephrology; ADMIT Internal Medicine
PROC: 3E1M39Z Irrigation of Peritoneal Cavity using Dialysate, Percutaneous Approach (ICD-10-PCS; principal; 2020-02-14)
PROC: 3E1M39Z Irrigation of Peritoneal Cavity using Dialysate, Percutaneous Approach (ICD-10-PCS; 2020-02-15)
PROC: 3E1M39Z Irrigation of Peritoneal Cavity using Dialysate, Percutaneous Approach (ICD-10-PCS; 2020-02-18)
PROC: 3E1M39Z Irrigation of Peritoneal Cavity using Dialysate, Percutaneous Approach (ICD-10-PCS; 2020-02-19)
DX: T85.631A Leakage of intraperitoneal dialysis catheter, initial encounter (principal); G92 Toxic encephalopathy; N18.6 End stage renal disease; J18.9 Pneumonia, unspecified organism; K81.0 Acute cholecystitis; E87.1 Hypo-osmolality and hyponatremia; N25.81 Secondary hyperparathyroidism of renal origin; I12.0 Hypertensive chronic kidney disease with stage 5 chronic kidney disease or end stage renal disease; Z51.5 Encounter for palliative care; Z66 Do not resuscitate; I25.2 Old myocardial infarction; E78.5 Hyperlipidemia, unspecified; Z79.82 Long term (current) use of aspirin; Z79.02 Long term (current) use of antithrombotics/antiplatelets; I25.10 Atherosclerotic heart disease of native coronary artery without angina pectoris; E87.6 Hypokalemia; E88.09 Other disorders of plasma-protein metabolism, not elsewhere classified; G89.29 Other chronic pain; M54.6 Pain in thoracic spine; D63.1 Anemia in chronic kidney disease; J98.4 Other disorders of lung; F41.9 Anxiety disorder, unspecified; Z78.1 Physical restraint status; Z99.2 Dependence on renal dialysis
CPT/HCPCS: 0241U; 36415; 51701; 62270; 70450; 71045; 72100; 74176; 80048; 80053; 80069; 80202; 81001; 82042; 82140; 82150; 82533; 82607; 82746; 83690; 83735; 84100; 84145; 84157; 84443; 84484; 84550; 85014; 85018; 85025; 85610; 85651; 85730; 86140; 87070; 87086; 87205; 89051; 92526; 92610; 93005; 93010; 94760; 96361-59; 96372-59; 96374-59; 96375-59; 96376-59; 99285-25; A9270-GY; C9113; J0692; J0696; J0881; J1630; J1644; J2060; J2405; J3010; J3370; J3480; J7030; P9046